=== PATIENT | male | born 1930 | race American Indian/Alaskan Native ===

== ENCOUNTER 2017-04-28 13:53 | Emergency (ER) | payer MEDICARE ==
[2017-04-28 14:07] VITALS: TEMP 99.1; O2SAT 100
--- NOTE | 2017-04-28 14:20 | ED PDOC ---
Arrival/HPI - General Chief Complaint: Shortness Of Breath Time Seen by Provider: 04/28/17 14:12 Historian: Family - History of Present Illness Narrative History of Present Illness (Text): 04/28/17 14:16 An 86 year old male, whose past medical history includes dementia and open heart surgery, is brought into the emergency department by family complaining of the patient being disoriented today. The family state that the patient has been having decreased appetite and complaining of subjective abdominal pain. The patient does not verbalize independently. The patient has no further complaint at this time. PMD: Dr. Carrillo Time/Duration: Prior to Arrival Symptom Onset: Sudden Symptom Course: Unchanged Activities at Onset: Rest, Light Context: Home Past Medical History - Provider Review Nursing Documentation Reviewed: Yes - Psychiatric Hx Substance Use: No - Surgical History Hx Coronary Artery Bypass Graft: Yes Family/Social History - Physician Review Nursing Documentation Reviewed: Yes Family/Social History: No Known Family HX Smoking Status: Never Smoked Hx Alcohol Use: No Hx Substance Use: No Allergies/Home Meds Allergies/Adverse Reactions: Allergies No Known Allergies Allergy (Verified 04/28/17 14:05) Home Medications: Home Meds Medication Instructions Recorded Confirmed Unobtainable 04/28/17 04/28/17 Review of Systems - Physician Review All systems were reviewed & negative as marked: Yes - Review of Systems Systems not reviewed;Unavailable: Dementia Constitutional: absent: Fevers Respiratory: absent: SOB, Cough Cardiovascular: absent: Chest Pain, SCHULTZ Gastrointestinal: Abdominal Pain. absent: Stool Changes, Diarrhea, Nausea, Vomiting Genitourinary Male: absent: Urinary Output Changes Musculoskeletal: absent: Back Pain, Neck Pain Neurological: absent: Headache, Dizziness Psychiatric: Other (Disoriented.) Physical Exam Vital Signs Reviewed: Yes Vital Signs Temp Pulse Resp BP Pulse Ox 04/28/17 15:50 63 18 138/64 100 04/28/17 14:25 18 04/28/17 14:05 99.1 F 70 20 149/63 100 Temperature: Afebrile Blood Pressure: Normal Pulse: Regular Respiratory Rate: Normal Appearance: Positive for: Well-Appearing, Non-Toxic, Comfortable Pain Distress: None Mental Status: No: Alert and Oriented X 3 (Patient is awake and alert. ) - Systems Exam Head: Present: Atraumatic, Normocephalic Pupils: Present: PERRL Extroacular Muscles: Present: EOMI Conjunctiva: Present: Normal Mouth: Present: Moist Mucous Membranes Neck: Present: Normal Range of Motion Respiratory/Chest: Present: Clear to Auscultation, Good Air Exchange. No: Respiratory Distress, Accessory Muscle Use Cardiovascular: Present: Regular Rate and Rhythm, Normal S1, S2. No: Murmurs Abdomen: Present: Normal Bowel Sounds, Scars (Surgical scar noted. ). No: Tenderness, Distention, Peritoneal Signs Back: Present: Normal Inspection Upper Extremity: Present: Normal Inspection, Normal ROM. No: Cyanosis, Edema Lower Extremity: Present: Normal Inspection, Normal ROM, Other (Patient ambulatory. ). No: Edema (No peripheral edema.) Neurological: Present: GCS=15, CN II-XII Intact, Speech Normal, Other (No neurologic deficits. ) Skin: Present: Warm, Dry, Normal Color. No: Rashes Psychiatric: Present: Alert, Oriented x 3, Normal Insight, Normal Concentration , Other (Patient does not verbalize any complaints. ) Medical Decision Making ED Course and Treatment: 04/28/17 14:23 Impression: An 86 year old male is brought into the emergency department by family complaining of disorientation, decreased appetite, and subjective abdominal pain. Plan: -- Abdominal X-Ray -- Urinalysis -- Labs -- Reassess and disposition Progress Notes: CHEST X-RAY Dictator : Dr. Jimenez, Fady TAMAYO Report Date : 04/28/2017 15:23:06 IMPRESSION: No active disease. - Lab Interpretations Lab Results: 04/28/17 14:25 04/28/17 14:25 Lab Results 04/28/17 17:14: Urine Color Yellow, Urine Appearance Sl cloudy, Urine pH 6.0, Ur Specific [place] >= 1.030, Urine Protein 100 H, Urine Glucose (UA) 500 H, Urine Ketones Negative, Urine Blood Moderate H, Urine Nitrate Negative, Urine Bilirubin Negative, Urine Urobilinogen 0.2, Ur Leukocyte Esterase Negative, Urine RBC 0 - 2, Urine WBC Negative 04/28/17 14:25: Sodium 141, Potassium 3.8, Chloride 105, Carbon Dioxide 25, Anion Gap 14, BUN 28 H, Creatinine 1.6 H, Est GFR ( Amer) 50, Est GFR ( Non-Af Amer) 41, Random Glucose 224 H, Calcium 8.9, Total Bilirubin 0.4, AST 34 , ALT 24, Alkaline Phosphatase 44, Troponin I 0.03, Total Protein 7.6, Albumin 3.9, Globulin 3.7, Albumin/Globulin Ratio 1.0 L 04/28/17 14:25: WBC 4.3 L, RBC 3.40 L, Hgb 9.4 L, Hct 29.8 L, MCV 87.6, MCH 27.6 , MCHC 31.5, RDW 17.8 H, Plt Count 107 L, MPV 10.4, Gran % 78.6 H, Lymph % (Auto ) 13.5 L, [place] % (Auto) 7.7 H, Eos % (Auto) 0.0 L, Baso % (Auto) 0.2, Gran # 3.38, Lymph # 0.6 L, [place] # 0.3, Eos # 0.0, Baso # 0.01 I have reviewed the lab results: Yes - RAD Interpretation Radiology Orders: 04/28/17 14:19 ABDOMEN (FLAT PLATE) 1VIEW [RAD] Stat - Scribe Statement The provider has reviewed the documentation as recorded by the Scribe Carley Triplett Provider Scribe Attestation: All medical record entries made by the Scribe were at my direction and personally dictated by me. I have reviewed the chart and agree that the record accurately reflects my personal performance of the history, physical exam, medical decision making, and the department course for this patient. I have also personally directed, reviewed, and agree with the discharge instructions and disposition. Disposition/Present on Arrival - Present on Arrival Any Indicators Present on Arrival: No History of DVT/PE: No History of Uncontrolled Diabetes: No Urinary Catheter: No History of Decub. Ulcer: No History Surgical Site Infection Following: None - Disposition Have Diagnosis and Disposition been Completed?: Yes Diagnosis: Dementia Disposition: HOME/ ROUTINE Disposition Time: 18:15 Patient Plan: Discharge Condition: STABLE Referrals: Boyd Carrillo MD [Primary Care Provider] - Follow up with primary Forms: [employer] (Malagasy)
[2017-04-28 14:44] LABS: BASO # 0.01 K/mm3 (0.0-2.0); BASO % 0.2 % (0.0-3.0); GRAN # 3.38 (1.4-6.5); GRAN % 78.6 % (50.0-68.0); HEMOGLOBIN 9.4 g/dL (14.0-18.0); LYMPH # 0.6 (1.2-3.4); LYMPH % 13.5 % (22.0-35.0); MEAN CELL VOLUME 87.6 fl (80.0-105.0); MEAN CORPUSCULAR HEMOGLOBIN 27.6 pg (25.0-35.0); MEAN CORPUSCULAR HGB CONC 31.5 g/dl (31.0-37.0); MEAN PLATELET VOLUME 10.4 fl (7.0-11.0); MONO # 0.3 (0.1-0.6); MONO % 7.7 % (1.0-6.0); RBC 3.4 10^6/uL (3.5-6.1); RED CELL DISTRIBUTION WIDTH 17.8 % (11.5-14.5); WHITE BLOOD COUNT 4.3 10^3/ul (4.5-11.0)
[2017-04-28 14:55] LABS: ALBUMIN 3.9 g/dL (3.0-4.8); CALCIUM 8.9 mg/dL (8.4-10.5)
[2017-04-28 15:06] LABS: TROPONIN I 0.03 ng/mL
--- NOTE | 2017-04-28 15:24 | RAD ---
HISTORY: pain COMPARISON: No prior. FINDINGS: BOWEL: Normal. No obstruction. No free air. BONES: Normal. OTHER FINDINGS: None. IMPRESSION: No active disease.
[2017-04-28 15:57] VITALS: RESP 18
[2017-04-28 17:47] LABS: URINE BILIRUBIN NEGATIVE (NEGATIVE); URINE BLOOD MODERATE (NEGATIVE); URINE GLUCOSE (UA) 500 mg/dL (NEGATIVE); URINE LEUKOCYTE ESTERASE NEGATIVE Leu/uL (NEGATIVE); URINE NITRATE NEGATIVE (NEGATIVE); URINE PROTEIN 100 mg/dL (<30 mg/dL); URINE UROBILINOGEN 0.2 E.U./dL (<1 E.U./dL)
[2017-04-28 17:48] LABS: URINE APPEARANCE SL CLOUDY (CLEAR); URINE COLOR YELLOW (YELLOW)
[2017-04-28 17:56] LABS: URINE RBC 0 - 2 /hpf (0-2); URINE WBC NEGATIVE /hpf (0-6)
[2017-04-28 18:47] VITALS: BP 136/68; PULSE 66
--- NOTE | 2017-04-29 10:54 | CARD ---
APPROVED REPORT EKG Measurement Heart [id number] <Conclusion> Normal sinus rhythm Baseline artifact Right bundle branch block Abnormal ECG
== END 2017-04-28 19:47 | disposition home or self-care (01) ==
LOC: ED 13:53 → MERGE 13:53 → ED 19:47
DX: F03.90 Unspecified dementia, unspecified severity, without behavioral disturbance, psychotic disturbance, mood disturbance, and anxiety (principal); Z95.1 Presence of aortocoronary bypass graft

== ENCOUNTER 2017-05-04 11:47 | Inpatient (IN) | payer MEDICARE ==
--- NOTE | 2017-05-04 12:20 | ED PDOC ---
Arrival/HPI - General Chief Complaint: Altered Mental Status Time Seen by Provider: 05/04/17 11:54 Historian: EMS - History of Present Illness Narrative History of Present Illness (Text): 05/04/17 12:16 A 87 year old male, brought in by ambulance for AMS. The patient's son found the patient this morning with cold skin and AMS. The patient was last seen at baseline yesterday around 5pm. Full HPI/ROS unobtainable due to dementia. Time/Duration: Prior to Arrival Symptom Onset: Sudden Activities at Onset: Rest, Light Context: Home Past Medical History - Provider Review Nursing Documentation Reviewed: Yes - Infectious Disease Hx of Infectious Diseases: None - Cardiac Hx Cardiac Disorders: Yes (see clearence) Other/Comment: H/O OPEN HEART SURGERY BYPASS - HEENT Hx HEENT Disorder: Yes Hx Cataracts: Yes - Endocrine/Metabolic Hx Endocrine Disorders: Yes Hx Diabetes Mellitus Type 2: Yes - Gastrointestinal Hx Gastritis: Yes - Genitourinary/Gynecological Hx Genitourinary Disorders: Yes Hx Prostate Cancer: Yes - Psychiatric Hx Substance Use: No - Surgical History Hx Coronary Artery Bypass Graft: Yes - Anesthesia Hx Anesthesia: Yes Hx Anesthesia Reactions: No - Suicidal Assessment Feels Threatened In Home Enviroment: No Family/Social History - Physician Review Nursing Documentation Reviewed: Yes Family/Social History: No Known Family HX Smoking Status: Never Smoked Hx Alcohol Use: No Hx Substance Use: No Allergies/Home Meds Allergies/Adverse Reactions: Allergies No Known Allergies Allergy (Verified 05/04/17 12:01) Home Medications: Home Meds Medication Instructions Recorded Confirmed No Known Home Med 05/04/17 05/04/17 Review of Systems - Review of Systems Systems not reviewed;Unavailable: Dementia Physical Exam - Physical Exam Narrative Physical Exam (Text): 05/04/17 12:16 Constitutional: Shivering. Head: Normocephalic. Atraumatic. Eyes: PERRL. ENT: Moist mucous membranes. Neck: Supple. Cardiovascular: Tachycardic. Chest: No deformity. Respiratory: Rhonchi bilaterally. GI: Soft. Nondistended. Back: No stepoff. Lower Extremity: 6cm right big toe nail. 5cm left big toenail. Musculoskeletal: No swelling of extremities. Skin: Cold to touch. Multiple echymosis on lower extremities. Neurologic: Responds to noxious stimuli. Vital Signs Temp Pulse Resp BP Pulse Ox 01/21/18 14:20 101 H 20 86/67 L 95 05/04/17 13:37 86.6 F L 119 H 20 133/51 L 95 05/04/17 12:13 85 F L 115 H 21 92/35 L 95 Medical Decision Making ED Course and Treatment: 05/04/17 12:20 Impression: A 87 year old male with hypothermia. Plan: -- Labs -- Chest X-ray -- EKG -- VBG -- Urinalysis -- Reassess and disposition Progress Notes: EKG: Ordered, reviewed, and independently interpreted the EKG. Rate : 114 BPM Rhythm : Sinus Rhythm Interpretation : Poor Baseline - appears to have positive Castellanos wave. Patient's blood pressure improved from arrival to SBP 130s after 30cc/kg bolus. Patient becoming more alert. CXR shows bilateraly opacities. Started on broad spectrum antibiotics. Labs also reveal lactic acidosis, acute renal injury, rhabdomyolysis, eelvated troponin. Dr. Mckeon accepts patient to hospitalist service. Dr. Riley accepts patient to ICU. - Lab Interpretations Lab Results: 05/04/17 12:35 05/04/17 12:35 Lab Results 05/04/17 12:50: PT 19.9 H, INR 1.71 H, APTT 36.2 05/04/17 12:35: Sodium 153 H, Chloride 112 H, Potassium 4.0, Carbon Dioxide 16 L , Anion Gap 29 H, BUN 49 H, Creatinine 3.3 H, Est GFR ( Amer) 22, Est GFR (Non-Af Amer) 18, Random Glucose 309 H* D, Calcium 9.0, Total Bilirubin 0.9 , AST 196 H D, ALT 57 H, Alkaline Phosphatase 68, Total Creatine Kinase 5670 H, CK-MB (CK-2) 69.0 H, CK-MB (CK-2) % 1.2 L, Troponin I 1.49 H* D, Total Protein 7.0, Albumin 3.4, Globulin 3.6, Albumin/Globulin Ratio 0.9 L, Lipase 16 L 05/04/17 12:35: pO2 51, VBG pH 6.94 L*, VBG pCO2 70.0 H*, VBG HCO3 15.0 L, VBG Total CO2 17.1 L, VBG O2 Sat (Calc) 72.5 H, VBG Base Excess -18.0 L, VBG Potassium 4.0, Sodium 146.0, Chloride 115.0 H, Glucose 328 H, Lactate 14.7 H*, FiO2 21.0, Venous Blood Potassium 4.0 05/04/17 12:35: WBC 7.1 D, RBC 3.49 L, Hgb 9.7 L, Hct 31.5 L, MCV 90.3, MCH 27.8, MCHC 30.8 L, RDW 18.0 H, Plt Count 197, MPV 10.7, Gran % 83.1 H, Lymph % ( Auto) 9.8 L, [place] % (Auto) 7.0 H, Eos % (Auto) 0.0 L, Baso % (Auto) 0.1, Gran # 5.91, Lymph # 0.7 L, [place] # 0.5, Eos # 0.0, Baso # 0.01 - RAD Interpretation Radiology Orders: 05/04/17 12:13 CHEST PORTABLE [RAD] Stat - Medication Orders Current Medication Orders: Sodium Chloride (Sodium Chloride 0.9%) 1,000 mls @ 999 mls/hr IV .Q1H1M STA Stop: 05/04/17 15:23 Discontinued Medications Aspirin (Aspirin Supp) 300 mg RC STAT STA Stop: 05/04/17 13:30 Last Admin: 05/04/17 13:48 Dose: 300 mg MAR Pain/Vitals Document 05/04/17 13:48 GMI (Rec: 05/04/17 13:48 GMI [id number]) Pain Reassessment Is This A Pain ReAssessment? No Sleep Is patient sleeping during reassessment? No Presence of Pain Presence of Pain No Hydrocortisone Sodium Succinate (Solu-Cortef) 50 mg IVP STAT STA Stop: 05/04/17 14:00 Sodium Chloride (Sodium Chloride 0.9%) 1,000 mls @ 999 mls/hr IV .Q1H1M STA Stop: 05/04/17 13:32 Last Admin: 05/04/17 13:41 Dose: 999 mls/hr eMAR Start Stop Document 05/04/17 13:41 GMI (Rec: 05/04/17 13:47 GMI [id number]) Intravenous Solution Start Date 05/04/17 Start Time 13:47 Cefepime HCl (Maxipime 1gm) 1 gm in 100 mls @ 100 mls/hr IVPB STAT STA PRN Reason: Protocol Stop: 05/04/17 13:43 Vancomycin HCl (Vancomycin 1gm) 1 gm in 250 mls @ 167 mls/hr IVPB STAT STA PRN Reason: Protocol Stop: 05/04/17 14:13 Last Admin: 05/04/17 12:50 Dose: 167 mls/hr eMAR Start Stop Document 05/04/17 12:50 GMI (Rec: 05/04/17 14:01 GMI [id number]) Intravenous Solution Start Date 05/04/17 Start Time 12:55 - Scribe Statement The provider has reviewed the documentation as recorded by the Sienna Pedersen Provider Scribe Attestation: All medical record entries made by the Scribe were at my direction and personally dictated by me. I have reviewed the chart and agree that the record accurately reflects my personal performance of the history, physical exam, medical decision making, and the department course for this patient. I have also personally directed, reviewed, and agree with the discharge instructions and disposition. Disposition/Present on Arrival - Present on Arrival Any Indicators Present on Arrival: No History of DVT/PE: No History of Uncontrolled Diabetes: No Urinary Catheter: No History of Decub. Ulcer: No History Surgical Site Infection Following: None - Disposition Have Diagnosis and Disposition been Completed?: Yes Diagnosis: Hypothermia, Pneumonia, Acute renal injury, Rhabdomyolysis, Lactic acidosis, Elevated troponin Disposition: HOSPITALIZED Disposition Time: 14:00 Patient Plan: ICU Condition: CRITICAL
[2017-05-04] MEDS ORDERED: Sodium Chloride 0.9% 1,000 ML IV STA ×2 (12:32→14:23)
[2017-05-04] MEDS ORDERED: Vancomycin 1gm in NS 250ml 1 GM/250 ML BAG IVPB STA (12:44)
[2017-05-04] MEDS ORDERED: Cefepime 1gm in NS 100ml 1 GM/100 ML BAG IVPB STA (12:44)
--- NOTE | 2017-05-04 12:56 | RAD ---
HISTORY: hypothermia COMPARISON: None available. TECHNIQUE: Chest, one view. FINDINGS: LUNGS: Bilateral right greater than left mid to lower lung zone predominant multifocal opacities worrisome for pneumonia. Please note that chest x-ray has limited sensitivity for the detection of pulmonary masses. PLEURA: No significant pleural effusion identified. No definite pneumothorax . CARDIOVASCULAR: Median sternotomy wires. Heart size appears top normal. OSSEOUS STRUCTURES: Degenerative changes. VISUALIZED UPPER ABDOMEN: Unremarkable. OTHER FINDINGS: None. IMPRESSION: Bilateral right greater than left mid to lower lung zone predominant multifocal opacities worrisome for pneumonia. Correlate clinically. Follow-up to complete resolution.
[2017-05-04 13:17] LABS: BASO # 0.01 [, K/mm3] (0.0-2.0); BASO % 0.1 % (0.0-3.0); GRAN # 5.91 (1.4-6.5); GRAN % 83.1 % (50.0-68.0); HEMOGLOBIN 9.7 g/dL (14.0-18.0); LYMPH # 0.7 (1.2-3.4); LYMPH % 9.8 % (22.0-35.0); MEAN CELL VOLUME 90.3 fl (80.0-105.0); MEAN CORPUSCULAR HEMOGLOBIN 27.8 pg (25.0-35.0); MEAN CORPUSCULAR HGB CONC 30.8 g/dl (31.0-37.0); MEAN PLATELET VOLUME 10.7 fl (7.0-11.0); MONO # 0.5 (0.1-0.6); RBC 3.49 [, 10^6/uL] (3.5-6.1); WHITE BLOOD COUNT 7.1 [, 10^3/ul] (4.5-11.0)
[2017-05-04 13:19] LABS: ALB/GLOB RATIO 0.9 (1.1-1.8); ALBUMIN 3.4 g/dL (3.0-4.8)
[2017-05-04 13:28] LABS: VENOUS BLOOD GAS PO2 51 mm/Hg (30-55)
[2017-05-04 13:28] LABS: INR 1.71 (0.93-1.08); PARTIAL THROMBOPLASTIN TIME 36.2 Seconds (25.1-36.5); PROTHROMBIN TIME 19.9 SECONDS (9.4-12.5)
[2017-05-04 13:31] LABS: VENOUS BLOOD PH 6.94 (7.32-7.43)
[2017-05-04 13:37] LABS: TROPONIN I 1.49 ng/mL
[2017-05-04 14:19] LABS: CK MB% 1.2 % (2.5-3.0)
[2017-05-04 14:48] LABS: URINE BILIRUBIN NEGATIVE (NEGATIVE); URINE BLOOD LARGE (NEGATIVE); URINE COLOR YELLOW (YELLOW); URINE GLUCOSE (UA) >=1000 mg/dL (NEGATIVE); URINE LEUKOCYTE ESTERASE NEGATIVE Leu/uL (NEGATIVE); URINE NITRATE POSITIVE (NEGATIVE); URINE PROTEIN >=300 mg/dL (<30 mg/dL); URINE UROBILINOGEN 0.2 E.U./dL (<1 E.U./dL)
[2017-05-04 14:49] LABS: URINE APPEARANCE SL CLOUDY (CLEAR)
--- NOTE | 2017-05-04 14:54 | CP.PCM.CON ---
<Eve Bullock - Last Filed: 05/04/17 14:45> History of Present Illness - History of Present Illness History of Present Illness: ICU consult for Debby Brown PGY2 Reason for consult: Sepsis, AMS This is an 87yo male with PMH of DM, CAD, prostate cancer, dementia who was brought in by ambulance for AMS. History was obtained through previous records, and family over the phone. According to [place], his second cousin, the patient lives alone and when he came to visit him he was unresponsive. EMS was called and patient was brought to the ED. He was found to be hypothermic, altered, hypotensive, septic with an elevated lactate and elevated troponin. CXR showed bibasilar pneumonia. Patient is confused and not following commands. ROS could not be obtained. PMH: DM, CAD, prostate cancer, dementia PSH: CABG, cholecystectomy Home meds: unknown All: NKDA SH: no EtOH, drug or tobacco use according to records Review of Systems - Review of Systems Systems not reviewed;Unavailable: Dementia, Altered Mental Status Past Patient History - Infectious Disease Hx of Infectious Diseases: None - Past Medical History & Family History Past Medical History?: Yes - Past Social History Smoking Status: Never Smoked - CARDIAC Hx Cardiac Disorders: Yes (see clearence) Other/Comment: H/O OPEN HEART SURGERY BYPASS - HEENT Hx HEENT Problems: Yes Hx Cataracts: Yes - ENDOCRINE/METABOLIC Hx Endocrine Disorders: Yes Hx Diabetes Mellitus Type 2: Yes - GASTROINTESTINAL Hx Gastritis: Yes - GENITOURINARY/GYNECOLOGICAL Hx Genitourinary Disorders: Yes Hx Prostate Cancer: Yes - PSYCHIATRIC Hx Substance Use: No - SURGICAL HISTORY Hx Coronary Artery Bypass Graft: Yes - ANESTHESIA Hx Anesthesia: Yes Hx Anesthesia Reactions: No Meds Allergies/Adverse Reactions: Allergies Allergy/AdvReac Type Severity Reaction Status Date / Time No Known Allergies Allergy Verified 05/04/17 12:01 - Medications Medications: Current Medications Sodium Chloride (Sodium Chloride 0.9%) 1,000 mls @ 999 mls/hr IV .Q1H1M STA Stop: 05/04/17 15:23 Last Admin: 05/04/17 14:41 Dose: 999 mls/hr Physical Exam - Constitutional Appears: Cachectic, Chronically Ill - Head Exam Head Exam: ATRAUMATIC, NORMAL INSPECTION, NORMOCEPHALIC - Eye Exam Eye Exam: Normal appearance, PERRL - ENT Exam ENT Exam: Mucous Membranes Dry - Respiratory Exam Respiratory Exam: Rhonchi (bibasilar ), Wheezes (diffuse ) - Cardiovascular Exam Cardiovascular Exam: REGULAR RHYTHM, +S1, +S2. absent: Gallop, Rubs, Systolic Murmur - GI/Abdominal Exam GI & Abdominal Exam: Normal Bowel Sounds, Soft. absent: Tenderness - Extremities Exam Extremities exam: Positive for: normal inspection. Negative for: calf tenderness, pedal edema - Neurological Exam Neurological exam: Altered, CN II-XII Intact - Skin Skin Exam: Dry, Warm Results - Vital Signs Recent Vital Signs: Last Vital Signs Temp 86.6 F L 05/04/17 13:37 Pulse 86 05/04/17 14:44 Resp 21 05/04/17 14:44 BP 92/41 L 05/04/17 14:44 Pulse Ox 95 05/04/17 14:44 - Labs Result Diagrams: 05/04/17 12:35 05/04/17 12:35 Labs: Laboratory Results - last 24 hr 05/04/17 05/04/17 05/04/17 12:35 12:35 12:35 WBC 7.1 D RBC 3.49 L Hgb 9.7 L Hct 31.5 L MCV 90.3 MCH 27.8 MCHC 30.8 L RDW 18.0 H Plt Count 197 MPV 10.7 Gran % 83.1 H Lymph % (Auto) 9.8 L [place] % (Auto) 7.0 H Eos % (Auto) 0.0 L Baso % (Auto) 0.1 Gran # 5.91 Lymph # 0.7 L [place] # 0.5 Eos # 0.0 Baso # 0.01 PT INR APTT pO2 51 VBG pH 6.94 L* VBG pCO2 70.0 H* VBG HCO3 15.0 L VBG Total CO2 17.1 L VBG O2 Sat (Calc) 72.5 H VBG Base Excess -18.0 L VBG Potassium 4.0 Sodium 146.0 153 H Chloride 115.0 H 112 H Glucose 328 H Lactate 14.7 H* FiO2 21.0 Potassium 4.0 Carbon Dioxide 16 L Anion Gap 29 H BUN 49 H Creatinine 3.3 H Est GFR ( Amer) 22 Est GFR (Non-Af Amer) 18 Random Glucose 309 H* D Calcium 9.0 Total Bilirubin 0.9 AST 196 H D ALT 57 H Alkaline Phosphatase 68 Total Creatine Kinase 5670 H CK-MB (CK-2) 69.0 H CK-MB (CK-2) % 1.2 L Troponin I 1.49 H* D Total Protein 7.0 Albumin 3.4 Globulin 3.6 Albumin/Globulin Ratio 0.9 L Lipase 16 L Venous Blood Potassium 4.0 05/04/17 12:50 WBC RBC Hgb Hct MCV MCH MCHC RDW Plt Count MPV Gran % Lymph % (Auto) [place] % (Auto) Eos % (Auto) Baso % (Auto) Gran # Lymph # [place] # Eos # Baso # PT 19.9 H INR 1.71 H APTT 36.2 pO2 VBG pH VBG pCO2 VBG HCO3 VBG Total CO2 VBG O2 Sat (Calc) VBG Base Excess VBG Potassium Sodium Chloride Glucose Lactate FiO2 Potassium Carbon Dioxide Anion Gap BUN Creatinine Est GFR ( Amer) Est GFR (Non-Af Amer) Random Glucose Calcium Total Bilirubin AST ALT Alkaline Phosphatase Total Creatine Kinase CK-MB (CK-2) CK-MB (CK-2) % Troponin I Total Protein Albumin Globulin Albumin/Globulin Ratio Lipase Venous Blood Potassium Assessment & Plan - Assessment and Plan (Free Text) Assessment: This is an 87yo male with PMH of DM, CAD, prostate cancer, dementia admitted for AMS secondary to septic shock from community acquired pneumonia and elevated troponin. Both myself and Dr. Gee had an at length conversation with the daughter, Brianna Gomez, who lives in [facility]. Her phone number is [phone]. As per Brianna, she states that her father would not want aggressive care and has verbalized that to her in the past. She states she would like non-invasive resuscitation, but refused central line. She also states she does not want intubation or CPR done on her father. This was vebalized to both myself and Dr. Gee. Plan: Will Continue IVF, antibiotics, steroids and loretta hugger. If patient's status does not improve, we will place him on comfort care. Dispo: Discussed treatment plan with daughter who agrees with the current management. Case seen, discussed and reviewed with attending, Dr. Gee. Debby Bullock PGY2 <Jason Gee - Last Filed: 05/04/17 16:22> Meds - Medications Medications: Current Medications Heparin Sodium/Sodium Chloride (Heparin 08294 Units/250ml 1/2 Normal Saline) 25 ,000 units in 250 mls @ 6.085 mls/hr IV .Q24H [place]; 12 UNITS/KG/HR PRN Reason: Protocol Insulin Human Regular (Humulin R Med) 0 units SC ACHS [place] PRN Reason: Protocol Pantoprazole Sodium (Protonix Inj) 40 mg IVP DAILY [place] Results - Vital Signs Recent Vital Signs: Last Vital Signs Temp 89.9 F L 05/04/17 15:59 Pulse 89 05/04/17 15:59 Resp 20 05/04/17 15:59 BP 88/49 L 05/04/17 15:59 Pulse Ox 95 05/04/17 15:59 - Labs Result Diagrams: 05/04/17 12:35 05/04/17 12:35 Labs: Laboratory Results - last 24 hr 05/04/17 14:35 Urine Color Yellow Urine Appearance Sl cloudy Urine pH 6.0 Ur Specific [place] >= 1.030 Urine Protein >=300 H Urine Glucose (UA) >=1000 Urine Ketones Negative Urine Blood Large H Urine Nitrate Positive H Urine Bilirubin Negative Urine Urobilinogen 0.2 Ur Leukocyte Esterase Negative Urine RBC 25 - 30 Urine WBC 1 - 3 Ur Epithelial Cells 0 - 2 Amorphous Sediment Few Urine Bacteria Many Hyaline Casts 0 - 2 Fine Granular Casts 0 - 2 Coarse Granular Casts Trace H Urine Other [place]ast Assessment & Plan - Assessment and Plan (Free Text) Assessment: Patient seen and examined with resident, agree with note with following additions/exceptions: Patient is 87yo male with PMHx DM, CAD, prostate cancer, dementia admitted for AMS. In the ER found to be hypothermic, T 86, hypotensive SBP 70s, placed on bear hugger and given 2L NS bolus, with broad spectrum antibiotics. Currently the patient is hypothermic, T 88, SBP 80-90s, HR 80s, lethargic, minimally responsive. Spoke to the daughter/HCP, Brianna BrandtClaribel Celeste over the phone, and she informed us that the patient would not have any aggressive or invasive measures, declines central line, intubation, or CPR. Patient to be DNR/DNI, no central line. Will continue to treat patient with bear hugger, antibiotics, IVF, IV steroids. Severe Sepsis PNA Hypothermia AMS Hx of Prostate Ca Dementia Dehydration Recommend: - supp o2 as needed, pt is DNI - IVF hydration - Bear Hugger - Stress dose steroids, SoluCortef - Antibitiocs, Cefepime, Vanco, Azithro - rule out Flu - Check urine Lg/Strep - Check Procal - hold BP meds - check TSH, cortisol level - FS control - GI ppx - DVT ppx - Poor prognosis, DNR/DNI, no central line critical care time 45 minutes
[2017-05-04 14:55] LABS: URINE BACTERIA MANY (NEG); URINE EPITHELIAL CELLS 0 - 2 /hpf (0-5); URINE FINE GRANULAR CAST 0 - 2 /hpf (0-2); URINE HYALINE CAST 0 - 2 /hpf; URINE RBC 25 - 30 /hpf (0-2)
[2017-05-04 14:56] LABS: URINE AMORPHOUS SEDIMENT FEW; URINE COARSE GRANULAR CAST TRACE /hpf (0-2)
[2017-05-04] MEDS ORDERED: Heparin25000 units/250ml 1/2NS 25,000 UNITS/250 ML BAG IV SCH (16:00)
--- NOTE | 2017-05-04 16:13 | CP.PCM.HP ---
<Jean Marie Kumar - Last Filed: 05/04/17 17:03> History of Present Illness - History of Present Illness History of Present Illness: Jean Marie José DO PGY1 - Internal Medicine H&P CC: Altered mental status HPI: 87 yo M with PMH of CAD s/p CABG, DM, prostate cancer, and dementia brought in by ambulance for altered mental status. History was obtained from chart review due to patient's mental status. Patient lives alone, as was found unresponsive by his second cousin, who is listed as next of kin in the EMR. EMS was called and patient was brought to the ED, where he was found to be unresponsive, hypothermic, and hypotensive. Patient was seen after initial resuscitation, and was awake and alert, moving intentionally, but still unresponsive, not obeying simple commands. ROS unobtainable. PMH: DM, CAD, prostate cancer, dementia PSH: CABG, cholecystectomy Home meds: unknown All: NKDA SH: no EtOH, drug or tobacco use according to records Present on Admission - Present on Admission Any Indicators Present on Admission: No Past Patient History - Infectious Disease Hx of Infectious Diseases: None - Past Medical History & Family History Past Medical History?: Yes - Past Social History Smoking Status: Never Smoked - CARDIAC Hx Cardiac Disorders: Yes (see clearence) Other/Comment: H/O OPEN HEART SURGERY BYPASS - HEENT Hx HEENT Problems: Yes Hx Cataracts: Yes - ENDOCRINE/METABOLIC Hx Endocrine Disorders: Yes Hx Diabetes Mellitus Type 2: Yes - GASTROINTESTINAL Hx Gastritis: Yes - GENITOURINARY/GYNECOLOGICAL Hx Genitourinary Disorders: Yes Hx Prostate Cancer: Yes - PSYCHIATRIC Hx Substance Use: No - SURGICAL HISTORY Hx Coronary Artery Bypass Graft: Yes - ANESTHESIA Hx Anesthesia: Yes Hx Anesthesia Reactions: No Meds Allergies/Adverse Reactions: Allergies Allergy/AdvReac Type Severity Reaction Status Date / Time No Known Allergies Allergy Verified 05/04/17 12:01 Physical Exam - Constitutional Appears: In Acute Distress, Agitated, Confused, Cachectic - Head Exam Head Exam: ATRAUMATIC, NORMOCEPHALIC - Eye Exam Eye Exam: EOMI, PERRL Pupil Exam: absent: Miosis, Mydriatic Additional comments: Eyes wide open in a fixed gaze, though he does orient his gaze to verbal stimuli - ENT Exam ENT Exam: Mucous Membranes Dry - Neck Exam Neck exam: Positive for: Normal Inspection - Respiratory Exam Respiratory Exam: Accessory Muscle Use, Decreased Breath Sounds, Rales, Rhonchi , Respiratory Distress - Cardiovascular Exam Cardiovascular Exam: Irregular Rhythm. absent: Tachycardia, JVD - GI/Abdominal Exam GI & Abdominal Exam: Guarding, Soft. absent: Rigid Additional comments: Hepatomegaly, 3cm below costal margin - Extremities Exam Extremities exam: Negative for: calf tenderness, pedal edema Additional comments: Extremities warm - Neurological Exam Additional comments: Patient is awake, though unresponsive, not obeying simple commands Moving all extremities spontaneously and with intention (removing mask, removing covers) PERRL Plantars downgoing bilaterally - Psychiatric Exam Psychiatric exam: Agitated - Skin Skin Exam: Dry, Intact, Normal Color Results - Vital Signs Recent Vital Signs: Last Vital Signs Temp 89.9 F L 05/04/17 15:59 Pulse 89 05/04/17 15:59 Resp 20 05/04/17 15:59 BP 88/49 L 05/04/17 15:59 Pulse Ox 95 05/04/17 15:59 - Labs Result Diagrams: 05/04/17 12:35 05/04/17 12:35 Labs: Laboratory Results - last 24 hr 05/04/17 14:35 Urine Color Yellow Urine Appearance Sl cloudy Urine pH 6.0 Ur Specific Brandon >= 1.030 Urine Protein >=300 H Urine Glucose (UA) >=1000 Urine Ketones Negative Urine Blood Large H Urine Nitrate Positive H Urine Bilirubin Negative Urine Urobilinogen 0.2 Ur Leukocyte Esterase Negative Urine RBC 25 - 30 Urine WBC 1 - 3 Ur Epithelial Cells 0 - 2 Amorphous Sediment Few Urine Bacteria Many Hyaline Casts 0 - 2 Fine Granular Casts 0 - 2 Coarse Granular Casts Trace H Urine Other Uyeast Assessment & Plan - Assessment and Plan (Free Text) Assessment: 87 yo M with PMH of DM, CAD s/p CABG, prostate cancer, dementia brought in by EMS after being found unresponsive, noted to be hypothermic and hypotensive in the ER. Also with bilateral infiltrates on CXR concerning for PNA, elevated troponins, hyperglycemia, ABBY, hypernatremia, and transaminemia. Altered mental status - Likely 2/2 septic shock vs intoxication vs hepatic encephalopathy vs CVA - Head CT ordered, pending - NPO until mental status improves Moderate Hypothermia - Likely 2/2 sepsis - Continue Bennie Hugger - Continue to monitor Septic shock - Code sepsis called at 1340 - Patient currently receiving 30cc/kg bolus; will reassess after bolus for further fluid resuscitation - Likely 2/2 possible bilateral multifocal PNA seen on CXR - Ordered procal, UA, UCx, BCx, urine legionella, urine strep antigen, mycoplasma IgG and IgM, - Ordered Flu swab - Patient in respiratory distress on exam, though saturating well on 3L by nonrebreather - Patient is severely acidotic on VBG with elevated lactate; elevated anion gap - Ordered ABG to further assess acid-base status - Patient received Cefepime and Vanc in ER; continue renally dosed Elevated troponin - EKG does not show any ST elevations; questionable ST depressions in V3-V6; RBBB similar to old EKG - May be 2/2 demand ischemia vs NSTEMI - Trend troponins; repeat EKG in AM - Start heparin drip with bolus - Requested cardio consult; appreciate recs Diabetes - Patient presents hyperglycemic - Started SSI Med and Accucheck Q6H - NPO until mental status improves ABBY - Patient has elevated Cr currently, only prior labs are from 2 weeks ago, baseline unknown - Most likely prerenal 2/2 shock status; ordered urine lytes, creatinine, osm to calculate FeNa - Ordered durant to r/o obstruction and to monitor I&O - Strict I&O - Avoid nephrotoxic medications; renally dose all medications Hypernatremia - Likely acute 2/2 dehydration/shock - Patient currently receiving NS for fluid resuscitation - Recheck BMP after initial fluid bolus (4 hours after initial BMP) - Will switch to hypoosmotic fluid after BP stabilization Transaminemia - 4:1 AST:ALT ratio, without elevation in T-bili - Ordered serum alcohol level, UDS, acetaminophen, and salicylates - Ordered ammonia level to r/o hepatic encephalopathy - May also be 2/2 shock - Recheck in AM GI/DVT Ppx - Heparin drip, Protonix IV Patient seen, discussed, and reviewed with attending, Dr. Alba <Henrik Alba - Last Filed: 05/05/17 16:15> Results - Vital Signs Recent Vital Signs: Last Vital Signs Temp 93.0 F L 05/04/17 18:10 Pulse 80 05/04/17 18:10 Resp 29 H 05/04/17 18:10 BP 93/43 L 01/21/18 18:00 Pulse Ox 96 05/04/17 16:19 - Labs Result Diagrams: 05/04/17 12:35 05/04/17 12:35 Labs: Laboratory Results - last 24 hr 05/04/17 05/04/17 05/04/17 16:00 16:00 16:10 pO2 VBG pH VBG pCO2 VBG HCO3 VBG Total CO2 VBG O2 Sat (Calc) VBG Base Excess VBG Potassium Sodium Chloride Glucose Lactate FiO2 Serum Osmolality Phosphorus Magnesium Ammonia Procalcitonin 53.06 H Venous Blood Potassium Urine Osmolality Ur Random Creatinine Ur Random Sodium Ur Random Potassium Salicylates < 1 L Urine Opiates Screen Urine Methadone Screen Acetaminophen < 10.0 L Ur Barbiturates Screen Ur Phencyclidine Scrn Ur Amphetamines Screen U Benzodiazepines Scrn U Oth Cocaine Metabols U Cannabinoids Screen Alcohol, Quantitative Influenza Typ A,B (EIA) Negative for flu a/b Ur L.pneumophila Ag 05/04/17 05/04/17 05/04/17 16:20 16:20 16:20 pO2 42 VBG pH 7.03 L* VBG pCO2 54.0 VBG HCO3 14.3 L VBG Total CO2 16.0 L VBG O2 Sat (Calc) 67.1 H VBG Base Excess -16.6 L VBG Potassium 4.2 Sodium 149.0 H Chloride 120.0 H Glucose 270 H Lactate 9.4 H* FiO2 21.0 Serum Osmolality 339 H Phosphorus Magnesium Ammonia Procalcitonin Venous Blood Potassium 4.2 Urine Osmolality 553 Ur Random Creatinine 133 Ur Random Sodium 31 Ur Random Potassium Salicylates Urine Opiates Screen Urine Methadone Screen Acetaminophen Ur Barbiturates Screen Ur Phencyclidine Scrn Ur Amphetamines Screen U Benzodiazepines Scrn U Oth Cocaine Metabols U Cannabinoids Screen Alcohol, Quantitative < 10 Influenza Typ A,B (EIA) Ur L.pneumophila Ag 05/04/17 05/04/17 05/04/17 16:20 16:20 18:30 pO2 VBG pH VBG pCO2 VBG HCO3 VBG Total CO2 VBG O2 Sat (Calc) VBG Base Excess VBG Potassium Sodium Chloride Glucose Lactate FiO2 Serum Osmolality Phosphorus 8.3 H Magnesium 2.5 H Ammonia 9 Procalcitonin Venous Blood Potassium Urine Osmolality Ur Random Creatinine Ur Random Sodium Ur Random Potassium 72.6 Salicylates Urine Opiates Screen Urine Methadone Screen Acetaminophen Ur Barbiturates Screen Ur Phencyclidine Scrn Ur Amphetamines Screen U Benzodiazepines Scrn U Oth Cocaine Metabols U Cannabinoids Screen Alcohol, Quantitative Influenza Typ A,B (EIA) Ur L.pneumophila Ag 05/04/17 05/04/17 18:30 18:30 pO2 VBG pH VBG pCO2 VBG HCO3 VBG Total CO2 VBG O2 Sat (Calc) VBG Base Excess VBG Potassium Sodium Chloride Glucose Lactate FiO2 Serum Osmolality Phosphorus Magnesium Ammonia Procalcitonin Venous Blood Potassium Urine Osmolality Ur Random Creatinine Ur Random Sodium Ur Random Potassium Salicylates Urine Opiates Screen Negative Urine Methadone Screen Negative Acetaminophen Ur Barbiturates Screen Negative Ur Phencyclidine Scrn Negative Ur Amphetamines Screen Negative U Benzodiazepines Scrn Negative U Oth Cocaine Metabols Negative U Cannabinoids Screen Negative Alcohol, Quantitative Influenza Typ A,B (EIA) Ur L.pneumophila Ag Negative Attending/Attestation - Attestation I have personally seen and examined this patient.: Yes I have fully participated in the care of the patient.: Yes I have reviewed all pertinent clinical information: Yes Notes (Text): I have seen and examined patient at bedside. Agree with the above note with the following additions/ exceptions: Briefly this is 87 year old male with history of CAD s/p CABG, DM-2, prostate cancer, and dementia who was brought by EMS for AMS which was most likely secondary to septic shock due to multifocal pneumia and UTI. Also has elevated troponins, hypernatremia, hyperglycemia, ABBY on CKD, hypernatremia, transaminitis and moderate hypothermia. Continue IVF, warming blankets, antibiotics and heparin dip. Patient's daughter informed our team that patient is DNR, DNI. Will consult literacy coach, ID and lumber kiln operator. Patient does not follow commands. Prognosis is poor.
[2017-05-04 16:22] VITALS: O2SAT 96
[2017-05-04 16:28] LABS: VENOUS BLOOD GAS BASE EXCESS -16.6 mmol/L (0.0-2.0); VENOUS BLOOD GAS PO2 42 mm/Hg (30-55)
[2017-05-04] MEDS ORDERED: Insulin Reg-MEDIUM-Coverage SC SCH (16:30)
[2017-05-04 16:32] LABS: VENOUS BLOOD PH 7.03 (7.32-7.43)
[2017-05-04 16:38] LABS: MAGNESIUM 2.5 mg/dL (1.7-2.2)
[2017-05-04 16:55] LABS: ACETAMINOPHEN < 10.0 ug/ml (10.0-20.0); SALICYLATE < 1 mg/dL (2.0-20.0)
[2017-05-04 16:55] LABS: CREATININE,RANDOM URINE 133 mg/dL
[2017-05-04 17:08] VITALS: BMI 17.9
--- NOTE | 2017-05-04 17:14 | CT ---
CT head without IV contrast History: Altered mental status Technique: Axial computed tomography images were obtained through the head/brain without intravenous contrast. This CT exam was performed using 1 or more of the following dose reduction techniques: Automated exposure control, adjustment of the MAA and/or kV according to patient size, and/or use of iterative reconstruction technique. Radiation dose: Total exam DLP = 987.20 mGy-cm. Comparison: None available. Findings: Diffuse atrophy with prominence of the ventricles and sulci noted. Dense intracranial atherosclerosis. Bilateral hemiconvexity subdural hygromas versus chronic subdural hematomas. No intracranial masses are identified. Scattered periventricular and subcortical white matter hypodensities, which are nonspecific, but often seen with chronic microvascular ischemic disease. Mucosal thickening of the ethmoid air cells. Visualized paranasal sinuses, mastoid air cells, and both orbits appear otherwise unremarkable. Impression: Generalized atrophy. Bilateral hemiconvexity subdural hygromas versus chronic subdural hematomas. Moderate nonspecific white matter changes.
--- NOTE | 2017-05-04 17:15 | PCM.SEPTIC ---
Sepsis Progress Note - Reassessment Type Date of Evaluation: 05/04/17 Time of Evaluation: 17:00 Reassessment Type: Non-invasive reassessment - Non Invasive Reassessment Were the most recent vital sign reviewed: Yes Vital Sign (Latest): Temp Pulse Resp BP Pulse Ox 91.9 F L 85 19 96/46 L 96 05/04/17 16:19 05/04/17 16:59 05/04/17 16:59 05/04/17 16:59 05/04/17 16:19 Cardiovascular: Yes: Tachycardia, Irregularly Irregular. No: Regular Rate, Rhythm, Edema, JVD Respiratory: Yes: Rales, Rhonchi, Respiratory Distress Capillary Refill: Normal (Less than 2 sec) Pulses: Normal Radial, Decreased Dorsalis Pedis, Decreased Posterior Tibialis Skin: Normal Color, Warm, Dry
[2017-05-04] MEDS ORDERED: Azithromycin 500MG/NS 250ml 500 MG/250 ML BAG IVPB SCH (17:30)
[2017-05-04] MEDS ORDERED: Sodium Chloride 0.9% 1,000 ML IV SCH (17:30)
[2017-05-04 18:14] VITALS: BP 93/43; PULSE 80; RESP 29; TEMP 93
--- NOTE | 2017-05-04 19:34 | CP.PCM.PRO ---
<Jean Marie Kumar - Last Filed: 05/04/17 19:36> Pronouncement of Note - Clinical Findings Physical Exam: No Response Verbal/Painful Stimuli, Absent Peripheral Pulses{ Carotid & Femoral}, Absent Heart & Breath Sounds, No Pupillary Light Reflex, No Corneal Reflex, Pupils Fixed & Dilated, Absence of Vital Signs - Pronouncement Time Time of Pronouncement of : 19:28 - Notifications Pronouncement Notifications: Family Notified, Atending Notified Manager Transport Notified: No - Autopsy Autopsy Requested: No - [place] [id number] <Ba Tidwell - Last Filed: 05/05/17 01:21> Pronouncement of Note - Notifications Manager Transport Notified: Yes (incorrect option initially listed by the resident physician) Attending/Attestation - Attestation I have personally seen and examined this patient.: Yes I have fully participated in the care of the patient.: Yes I have reviewed all pertinent clinical information: Yes Notes (Text): 05/05/17 01:20 Manager Transport was notified; body was released. EDRS started; to be completed by the Attending Physician.
[2017-05-04 20:34] LABS: BARBITURATES, UR NEGATIVE (NEGATIVE); BENZODIAZEPINES, UR NEGATIVE (NEGATIVE); OPIATES, UR NEGATIVE (NEGATIVE); PHENCYCLIDINE, UR NEGATIVE (NEGATIVE)
[2017-05-04 21:28] LABS: OSMOLALITY,SERUM 339 mosm/kg (272-300)
[2017-05-04 21:30] LABS: OSMOLALITY,URINE 553 mosm/kg (300-1000)
--- NOTE | 2017-05-05 09:21 | CARD ---
APPROVED REPORT EKG Measurement Heart [id number] <Conclusion> Atrial fibrillation with rapid ventricular response Possible Inferior infarct, age undetermined Marked ST abnormality c/w ischemia These findings are new c/w ECG 04/28/17
[2017-05-05] MEDS ORDERED: Vancomycin 1gm in NS 250ml 1 GM/250 ML BAG IVPB SCH (12:45)
[2017-05-05] MEDS ORDERED: Cefepime 1gm in NS 100ml 1 GM/100 ML BAG IVPB SCH (12:45)
--- NOTE | 2017-05-05 16:46 | CP.PCM.DIS ---
<Jean Marie Kumar - Last Filed: 05/05/17 16:40> Provider - Provider Date of Admission: 05/04/17 14:14 Attending physician: Henrik Alba MD Primary care physician: Boyd Carrillo MD Time Spent in preparation of Discharge (in minutes): 25 Diagnosis - Discharge Diagnosis (1) Acute renal injury Status: Acute (2) Elevated troponin Status: Acute (3) Hypothermia Status: Acute (4) Lactic acidosis Status: Acute (5) Pneumonia Status: Acute Hospital Course - Lab Results Lab Results: Most Recent Lab Values WBC 7.1 10^3/ul (4.5-11.0) D 05/04/17 12:35 RBC 3.49 10^6/uL (3.5-6.1) L 05/04/17 12:35 Hgb 9.7 g/dL (14.0-18.0) L 05/04/17 12:35 Hct 31.5 % (42.0-52.0) L 05/04/17 12:35 MCV 90.3 fl (80.0-105.0) 05/04/17 12:35 MCH 27.8 pg (25.0-35.0) 05/04/17 12:35 MCHC 30.8 g/dl (31.0-37.0) L 05/04/17 12:35 RDW 18.0 % (11.5-14.5) H 05/04/17 12:35 Plt Count 197 10^3/uL (120.0-450.0) 05/04/17 12:35 MPV 10.7 fl (7.0-11.0) 05/04/17 12:35 Gran % 83.1 % (50.0-68.0) H 05/04/17 12:35 Lymph % (Auto) 9.8 % (22.0-35.0) L 05/04/17 12:35 [place] % (Auto) 7.0 % (1.0-6.0) H 05/04/17 12:35 Eos % (Auto) 0.0 % (1.5-5.0) L 05/04/17 12:35 Baso % (Auto) 0.1 % (0.0-3.0) 05/04/17 12:35 Gran # 5.91 (1.4-6.5) 05/04/17 12:35 Lymph # 0.7 (1.2-3.4) L 05/04/17 12:35 [place] # 0.5 (0.1-0.6) 05/04/17 12:35 Eos # 0.0 (0.0-0.7) 05/04/17 12:35 Baso # 0.01 K/mm3 (0.0-2.0) 05/04/17 12:35 PT 19.9 SECONDS (9.4-12.5) H 05/04/17 12:50 INR 1.71 (0.93-1.08) H 05/04/17 12:50 APTT 36.2 Seconds (25.1-36.5) 05/04/17 12:50 pO2 42 mm/Hg (30-55) 05/04/17 16:20 VBG pH 7.03 (7.32-7.43) L* 05/04/17 16:20 VBG pCO2 54.0 (40-60) 05/04/17 16:20 VBG HCO3 14.3 mmol/l (21-28) L 05/04/17 16:20 VBG Total CO2 16.0 mmol.L (22-28) L 05/04/17 16:20 VBG O2 Sat (Calc) 67.1 % (40-65) H 05/04/17 16:20 VBG Base Excess -16.6 mmol/L (0.0-2.0) L 05/04/17 16:20 VBG Potassium 4.2 mmol/L (3.6-5.2) 05/04/17 16:20 Sodium 149.0 mmol/L (132-148) H 05/04/17 16:20 Chloride 120.0 mmol/L (98-107) H 05/04/17 16:20 Glucose 270 mg/dl (75-110) H 05/04/17 16:20 Lactate 9.4 mmol/L (0.7-2.1) H* 05/04/17 16:20 FiO2 21.0 % 05/04/17 16:20 Sodium 153 mmol/L (132-148) H 05/04/17 12:35 Potassium 4.0 mmol/L (3.6-5.0) 05/04/17 12:35 Chloride 112 mmol/L (98-107) H 05/04/17 12:35 Carbon Dioxide 16 mmol/L (21-33) L 05/04/17 12:35 Anion Gap 29 (10-20) H 05/04/17 12:35 BUN 49 mg/dL (7-21) H 05/04/17 12:35 Creatinine 3.3 mg/dl (0.8-1.5) H 05/04/17 12:35 Est GFR ( Amer) 22 05/04/17 12:35 Est GFR (Non-Af Amer) 18 05/04/17 12:35 Random Glucose 309 mg/dL (70-110) H* D 05/04/17 12:35 Serum Osmolality 339 mosm/kg (272-300) H 05/04/17 16:20 Calcium 9.0 mg/dL (8.4-10.5) 05/04/17 12:35 Phosphorus 8.3 mg/dL (2.5-4.5) H 05/04/17 16:20 Magnesium 2.5 mg/dL (1.7-2.2) H 05/04/17 16:20 Total Bilirubin 0.9 mg/dL (0.2-1.3) 05/04/17 12:35 AST 196 U/L (17-59) H D 05/04/17 12:35 ALT 57 U/L (7-56) H 05/04/17 12:35 Alkaline Phosphatase 68 U/L (38-126) 05/04/17 12:35 Ammonia 9 umol/L (9-33) 05/04/17 16:20 Total Creatine Kinase 5670 U/L (35-230) H 05/04/17 12:35 CK-MB (CK-2) 69.0 ng/mL (0.0-3.6) H 05/04/17 12:35 CK-MB (CK-2) % 1.2 % (2.5-3.0) L 05/04/17 12:35 Troponin I 1.49 ng/mL H* D 05/04/17 12:35 Total Protein 7.0 g/dL (5.8-8.3) 05/04/17 12:35 Albumin 3.4 g/dL (3.0-4.8) 05/04/17 12:35 Globulin 3.6 gm/dL 05/04/17 12:35 Albumin/Globulin Ratio 0.9 (1.1-1.8) L 05/04/17 12:35 Lipase 16 U/L (23-300) L 05/04/17 12:35 Procalcitonin 53.06 NG/ML (0.19-0.49) H 05/04/17 16:10 Venous Blood Potassium 4.2 mmol/L (3.6-5.2) 05/04/17 16:20 Urine Color Yellow (YELLOW) 05/04/17 14:35 Urine Appearance Sl cloudy (CLEAR) 05/04/17 14:35 Urine pH 6.0 (4.7-8.0) 05/04/17 14:35 Ur Specific Crescent >= 1.030 (1.005-1.035) 05/04/17 14:35 Urine Protein >=300 mg/dL (<30 mg/dL) H 05/04/17 14:35 Urine Glucose (UA) >=1000 mg/dL (NEGATIVE) 05/04/17 14:35 Urine Ketones Negative mg/dL (NEGATIVE) 05/04/17 14:35 Urine Blood Large (NEGATIVE) H 05/04/17 14:35 Urine Nitrate Positive (NEGATIVE) H 05/04/17 14:35 Urine Bilirubin Negative (NEGATIVE) 05/04/17 14:35 Urine Urobilinogen 0.2 E.U./dL (<1 E.U./dL) 05/04/17 14:35 Ur Leukocyte Esterase Negative Kaity/uL (NEGATIVE) 05/04/17 14:35 Urine RBC 25 - 30 /hpf (0-2) 05/04/17 14:35 Urine WBC 1 - 3 /hpf (0-6) 05/04/17 14:35 Ur Epithelial Cells 0 - 2 /hpf (0-5) 05/04/17 14:35 Amorphous Sediment Few 05/04/17 14:35 Urine Bacteria Many (NEG) 05/04/17 14:35 Hyaline Casts 0 - 2 /hpf 05/04/17 14:35 Fine Granular Casts 0 - 2 /hpf (0-2) 05/04/17 14:35 Coarse Granular Casts Trace /hpf (0-2) H 05/04/17 14:35 Urine Other Uyeast 05/04/17 14:35 Urine Osmolality 553 mosm/kg (300-1000) 05/04/17 16:20 Ur Random Creatinine 133 mg/dL 05/04/17 16:20 Ur Random Sodium 31 meq/L 05/04/17 16:20 Ur Random Potassium 72.6 meq/L 05/04/17 18:30 Salicylates < 1 mg/dL (2.0-20.0) L 05/04/17 16:00 Urine Opiates Screen Negative (NEGATIVE) 05/04/17 18:30 Urine Methadone Screen Negative (NEGATIVE) 05/04/17 18:30 Acetaminophen < 10.0 ug/ml (10.0-20.0) L 05/04/17 16:00 Ur Barbiturates Screen Negative (NEGATIVE) 05/04/17 18:30 Ur Phencyclidine Scrn Negative (NEGATIVE) 05/04/17 18:30 Ur Amphetamines Screen Negative (NEGATIVE) 05/04/17 18:30 U Benzodiazepines Scrn Negative (NEGATIVE) 05/04/17 18:30 U Oth Cocaine Metabols Negative (NEGATIVE) 05/04/17 18:30 U Cannabinoids Screen Negative (NEGATIVE) 05/04/17 18:30 Alcohol, Quantitative < 10 mg/dL (0-10) 05/04/17 16:20 Influenza Typ A,B (EIA) Negative for flu a/b (NEGATIVE) 05/04/17 16:00 Ur L.pneumophila Ag Negative (NEGATIVE) 05/04/17 18:30 - Hospital Course Hospital Course: 87 yo M with PMH of DM, CAD s/p CABG, prostate cancer, dementia brought in by EMS after being found unresponsive, noted to be hypothermic and hypotensive in the ER. Also with bilateral infiltrates on CXR concerning for PNA, elevated troponins, hyperglycemia, ABBY, hypernatremia, and transaminemia. Patient was admitted to the ICU and treated for all the above listed findings. Patient's daughter was contacted who stated that her father's wishes were to remain DNR/ DNI. After initial resuscitation and initiating further treatment, patient became bradycardic and then immediately thereafter, pulseless in PEA, followed by asystole. Patient was pronounced at approximately 1930; family, attending, ME, and sharing network were all notified. Discharge Exam - Head Exam Head Exam: ATRAUMATIC (Patient , not examined), NORMOCEPHALIC Discharge Plan - Follow Up Plan Condition: Disposition: WITH WITHOUT AUTOPSY Referrals: Boyd Carrillo MD [Primary Care Provider] - <Henrik Alba - Last Filed: 05/05/17 17:01> Provider - Provider Date of Admission: 05/04/17 14:14 Attending physician: Henrik Alba MD Primary care physician: Boyd Carrillo MD Hospital Course - Lab Results Lab Results: Most Recent Lab Values WBC 7.1 10^3/ul (4.5-11.0) D 05/04/17 12:35 RBC 3.49 10^6/uL (3.5-6.1) L 05/04/17 12:35 Hgb 9.7 g/dL (14.0-18.0) L 05/04/17 12:35 Hct 31.5 % (42.0-52.0) L 05/04/17 12:35 MCV 90.3 fl (80.0-105.0) 05/04/17 12:35 MCH 27.8 pg (25.0-35.0) 05/04/17 12:35 MCHC 30.8 g/dl (31.0-37.0) L 05/04/17 12:35 RDW 18.0 % (11.5-14.5) H 05/04/17 12:35 Plt Count 197 10^3/uL (120.0-450.0) 05/04/17 12:35 MPV 10.7 fl (7.0-11.0) 05/04/17 12:35 Gran % 83.1 % (50.0-68.0) H 05/04/17 12:35 Lymph % (Auto) 9.8 % (22.0-35.0) L 05/04/17 12:35 [place] % (Auto) 7.0 % (1.0-6.0) H 05/04/17 12:35 Eos % (Auto) 0.0 % (1.5-5.0) L 05/04/17 12:35 Baso % (Auto) 0.1 % (0.0-3.0) 05/04/17 12:35 Gran # 5.91 (1.4-6.5) 05/04/17 12:35 Lymph # 0.7 (1.2-3.4) L 05/04/17 12:35 [place] # 0.5 (0.1-0.6) 05/04/17 12:35 Eos # 0.0 (0.0-0.7) 05/04/17 12:35 Baso # 0.01 K/mm3 (0.0-2.0) 05/04/17 12:35 PT 19.9 SECONDS (9.4-12.5) H 05/04/17 12:50 INR 1.71 (0.93-1.08) H 05/04/17 12:50 APTT 36.2 Seconds (25.1-36.5) 05/04/17 12:50 pO2 42 mm/Hg (30-55) 05/04/17 16:20 VBG pH 7.03 (7.32-7.43) L* 05/04/17 16:20 VBG pCO2 54.0 (40-60) 05/04/17 16:20 VBG HCO3 14.3 mmol/l (21-28) L 05/04/17 16:20 VBG Total CO2 16.0 mmol.L (22-28) L 05/04/17 16:20 VBG O2 Sat (Calc) 67.1 % (40-65) H 05/04/17 16:20 VBG Base Excess -16.6 mmol/L (0.0-2.0) L 05/04/17 16:20 VBG Potassium 4.2 mmol/L (3.6-5.2) 05/04/17 16:20 Sodium 149.0 mmol/L (132-148) H 05/04/17 16:20 Chloride 120.0 mmol/L (98-107) H 05/04/17 16:20 Glucose 270 mg/dl (75-110) H 05/04/17 16:20 Lactate 9.4 mmol/L (0.7-2.1) H* 05/04/17 16:20 FiO2 21.0 % 05/04/17 16:20 Sodium 153 mmol/L (132-148) H 05/04/17 12:35 Potassium 4.0 mmol/L (3.6-5.0) 05/04/17 12:35 Chloride 112 mmol/L (98-107) H 05/04/17 12:35 Carbon Dioxide 16 mmol/L (21-33) L 05/04/17 12:35 Anion Gap 29 (10-20) H 05/04/17 12:35 BUN 49 mg/dL (7-21) H 05/04/17 12:35 Creatinine 3.3 mg/dl (0.8-1.5) H 05/04/17 12:35 Est GFR ( Amer) 22 05/04/17 12:35 Est GFR (Non-Af Amer) 18 05/04/17 12:35 Random Glucose 309 mg/dL (70-110) H* D 05/04/17 12:35 Serum Osmolality 339 mosm/kg (272-300) H 05/04/17 16:20 Calcium 9.0 mg/dL (8.4-10.5) 05/04/17 12:35 Phosphorus 8.3 mg/dL (2.5-4.5) H 05/04/17 16:20 Magnesium 2.5 mg/dL (1.7-2.2) H 05/04/17 16:20 Total Bilirubin 0.9 mg/dL (0.2-1.3) 05/04/17 12:35 AST 196 U/L (17-59) H D 05/04/17 12:35 ALT 57 U/L (7-56) H 05/04/17 12:35 Alkaline Phosphatase 68 U/L (38-126) 05/04/17 12:35 Ammonia 9 umol/L (9-33) 05/04/17 16:20 Total Creatine Kinase 5670 U/L (35-230) H 05/04/17 12:35 CK-MB (CK-2) 69.0 ng/mL (0.0-3.6) H 05/04/17 12:35 CK-MB (CK-2) % 1.2 % (2.5-3.0) L 05/04/17 12:35 Troponin I 1.49 ng/mL H* D 05/04/17 12:35 Total Protein 7.0 g/dL (5.8-8.3) 05/04/17 12:35 Albumin 3.4 g/dL (3.0-4.8) 05/04/17 12:35 Globulin 3.6 gm/dL 05/04/17 12:35 Albumin/Globulin Ratio 0.9 (1.1-1.8) L 05/04/17 12:35 Lipase 16 U/L (23-300) L 05/04/17 12:35 Procalcitonin 53.06 NG/ML (0.19-0.49) H 05/04/17 16:10 Venous Blood Potassium 4.2 mmol/L (3.6-5.2) 05/04/17 16:20 Urine Color Yellow (YELLOW) 05/04/17 14:35 Urine Appearance Sl cloudy (CLEAR) 05/04/17 14:35 Urine pH 6.0 (4.7-8.0) 05/04/17 14:35 Ur Specific [place] >= 1.030 (1.005-1.035) 05/04/17 14:35 Urine Protein >=300 mg/dL (<30 mg/dL) H 05/04/17 14:35 Urine Glucose (UA) >=1000 mg/dL (NEGATIVE) 05/04/17 14:35 Urine Ketones Negative mg/dL (NEGATIVE) 05/04/17 14:35 Urine Blood Large (NEGATIVE) H 05/04/17 14:35 Urine Nitrate Positive (NEGATIVE) H 05/04/17 14:35 Urine Bilirubin Negative (NEGATIVE) 05/04/17 14:35 Urine Urobilinogen 0.2 E.U./dL (<1 E.U./dL) 05/04/17 14:35 Ur Leukocyte Esterase Negative Kaity/uL (NEGATIVE) 05/04/17 14:35 Urine RBC 25 - 30 /hpf (0-2) 05/04/17 14:35 Urine WBC 1 - 3 /hpf (0-6) 05/04/17 14:35 Ur Epithelial Cells 0 - 2 /hpf (0-5) 05/04/17 14:35 Amorphous Sediment Few 05/04/17 14:35 Urine Bacteria Many (NEG) 05/04/17 14:35 Hyaline Casts 0 - 2 /hpf 05/04/17 14:35 Fine Granular Casts 0 - 2 /hpf (0-2) 05/04/17 14:35 Coarse Granular Casts Trace /hpf (0-2) H 05/04/17 14:35 Urine Other Uyeast 05/04/17 14:35 Urine Osmolality 553 mosm/kg (300-1000) 05/04/17 16:20 Ur Random Creatinine 133 mg/dL 05/04/17 16:20 Ur Random Sodium 31 meq/L 05/04/17 16:20 Ur Random Potassium 72.6 meq/L 05/04/17 18:30 Salicylates < 1 mg/dL (2.0-20.0) L 05/04/17 16:00 Urine Opiates Screen Negative (NEGATIVE) 05/04/17 18:30 Urine Methadone Screen Negative (NEGATIVE) 05/04/17 18:30 Acetaminophen < 10.0 ug/ml (10.0-20.0) L 05/04/17 16:00 Ur Barbiturates Screen Negative (NEGATIVE) 05/04/17 18:30 Ur Phencyclidine Scrn Negative (NEGATIVE) 05/04/17 18:30 Ur Amphetamines Screen Negative (NEGATIVE) 05/04/17 18:30 U Benzodiazepines Scrn Negative (NEGATIVE) 05/04/17 18:30 U Oth Cocaine Metabols Negative (NEGATIVE) 05/04/17 18:30 U Cannabinoids Screen Negative (NEGATIVE) 05/04/17 18:30 Alcohol, Quantitative < 10 mg/dL (0-10) 05/04/17 16:20 Influenza Typ A,B (EIA) Negative for flu a/b (NEGATIVE) 05/04/17 16:00 Ur L.pneumophila Ag Negative (NEGATIVE) 05/04/17 18:30 Attending/Attestation - Attestation I have personally seen and examined this patient.: No I have fully participated in the care of the patient.: No I have reviewed all pertinent clinical information, including history, physical exam and plan: Yes Notes (Text): Patient . certificate signed.
[2017-05-07 00:27] LABS: SOURCE SERUM
== END 2017-05-04 19:30 | DRG 871 ==
LOC: ED 11:47 → ERH 14:14 → CCU 16:09
PROVIDERS: ADMIT Internal Medicine; ATTEND Hospitalist
DX: A41.9 Sepsis, unspecified organism (principal); J18.9 Pneumonia, unspecified organism; R65.21 Severe sepsis with septic shock; N17.9 Acute kidney failure, unspecified; E87.0 Hyperosmolality and hypernatremia; E87.2 Acidosis; E11.65 Type 2 diabetes mellitus with hyperglycemia; E86.0 Dehydration; R68.0 Hypothermia, not associated with low environmental temperature; I25.10 Atherosclerotic heart disease of native coronary artery without angina pectoris; F03.90 Unspecified dementia, unspecified severity, without behavioral disturbance, psychotic disturbance, mood disturbance, and anxiety; Z66 Do not resuscitate; Z85.46 Personal history of malignant neoplasm of prostate; Z95.1 Presence of aortocoronary bypass graft